=== PATIENT | male | born 1950 | race Caucasian/White ===

== ENCOUNTER 2019-06-13 11:56 | Inpatient (IN) | payer MEDICARE ==
[~2019-06-13] VITALS: Ht 172.7 cm; Wt 68.2 kg
--- NOTE | ~2019-06-13 | HEMODYNAMI ---
PATIENT:KELLY PINA MEDICAL RECORD: [id number] : 52 LOCATION[id number] ADMISSION DATE: 06/13/19 Generatedon:06/14/20198:24 Patient name: KELLY PINA Patient #: [id number] : 1950 Date of study: 06/14/2019 Page: Of Hemodynamic Procedure Report Patient Data Patient Demographics Procedure consent was obtained First Name: KELLY Gender: Male Last Name: SILVANA : 1950 Patient #: [id number] Age: 68 year(s) Race: SSN: [id number] Additional ID: [id number] Contact details Address: [place] [address] State: [place] City: [place] Zip code: [address] Past Medical History Allergies Allergen Reaction Date Comments Reported Other allergy 06/14/2019 [facility] Admission Admission Data Admission Date: 06/13/2019 Admission Time: 12:40 Room #: [facility] Insurance Payor: Medicare [facility] #: [id number] Current Diagnosis Diagnosis Description NSTEMI Lab Results Lab Result Date: 06/14/2019 Lab Result Time: 4:50 Biochemistry Name Units Result Min Max BUN mg/dl 25 --(----)-* 7 18 Creatinine mg/dl 1.4 --(----)*- 0.6 1.3 CBC Name Units Result Min Max Hematocrit % 44.3 --(*---)-- 42 54 Hemoglobin g/dl 16.4 --(--*-)-- 13.5 17.5 Procedure Procedure Types Cath Procedure Diagnostic Procedure LHC LHC w/Coronaries Procedure Description Procedure Date Procedure Date: 06/14/2019 Procedure Start Time: 8:12 Procedure End Time: 8:23 Procedure Staff Name Function Kris Mejia MD Performing Physician Alistair Singer RT Monitor Ty Mcarthur RN Nurse Kit Samuels RT Scrub Procedure Data Cath Procedure Fluoroscopy Diagnostic fluoroscopy Total fluoroscopy Time: 0.8 time: 0.8 min min Diagnostic fluoroscopy Total fluoroscopy dose: 212 dose: 212 mGy mGy Contrast Material Contrast Material Type Amount (ml) Isovue 300 45 Entry Location Entry Primary Successful Side Size Upsize Upsize Entry Closure Succes sful Closure Location (Fr) 1 (Fr) 2 (Fr) Remarks Device Remarks Femoral Right 5 Fr Exoseal artery Estimated blood loss: 5 ml Diagnostic catheters Device Type Used For End Catheter Placement MULTIPACK Pigtail 5 Fr Procedure catheter MULTIPACK JL 4.0 5Fr Procedure catheter MULTIPACK 3DRC 5Fr Procedure catheter Procedure Complications No complications Procedure Medications Medication Administration Route Dosage 0.9% NaCl I.V. 100 ml/hr Oxygen NC 3 l/min Heparin Flush Bag added to field 2 bags (1000units/500ml NS) Lidocaine 2% added to field 20 Versed I.V. 2 mg Fentanyl I.V. 100 mcg Versed I.V. 2 mg Fentanyl I.V. 100 mcg Hemodynamics Rest HGB: 16.4 (g/dl) Heart Rate: 86 (bpm) Snapshots Pre Cath Intra NCS Post Cath Vital Signs Time Heart Resp SPO2 etCO2 NIBP Rhythm Pain Sedation Rate (ipm) (%) (mmHg) (mmHg) Status Level (bpm) 7:59:15 75 23 95 0 127/80(97) NSR 0 (11) 10(A) , No pain 8:03:25 80 22 92 0 117/78(95) NSR 0 (11) 10(A) , No pain 8:07:31 82 32 91 0 116/75(90) NSR 0 (11) 10(A) , No pain 8:11:32 81 19 92 0 109/76(93) NSR 0 (11) 10(A) , No pain 8:15:36 79 16 92 0 104/78(92) NSR 0 (11) 10(A) , No pain 8:19:36 81 24 90 0 120/73(97) NSR 0 (11) 10(A) , No pain Medications Time Medication Route Dose Verified Delivered Reason Notes Effec tiveness by by 7:57:34 0.9% NaCl I.V. 100 Ty Ty Per ml/hr Blue newman RN RN 7:57:46 Oxygen NC 3 Ty Ty for low 02 l/min Lorigan Lorigan sats RN RN 7:57:58 Heparin Flush added 2 Ty Ty used for Bag to bags Lorigan Lorigan procedure (1000units/500ml field RN RN NS) 7:58:12 Lidocaine 2% added 20ml Yt Ty for local to vial Lorigan Lorigan anesthetic field RN RN 8:10:46 Versed I.V. 2 mg Ty Ty for Lorigan Lorigan sedation RN RN 8:10:55 Fentanyl I.V. 100 Ty Ty for mcg Lorigan Lorigan sedation RN RN 8:12:06 Versed I.V. 2 mg Ty Ty for Lorigan Lorigan sedation RN RN 8:12:13 Fentanyl I.V. 100 Ty Ty for mcg Lorigan Lorigan sedation RN rack pusher Log Time Note 7:30:11 Insurance Payor : Medicare 7:30:26 Ty Mcarthur RN sent for patient. Start room use. 7:30:39 Current Diagnosis : NSTEMI 7:39:27 Time tracking: Regular hours (M-F 7:00 - 5:00) 7:39:32 Plan of Care:Hemodynamics will remain stable., Cardiac rhythm will remain stable., Comfort level will be maintained., Respiratory function will remain adequate., Patient/ family verbilizes understanding of procedure., Procedure tolerated without complication., Recovers from procedure without complications.. 7:47:06 Lab Result : Hemoglobin 16.4 g/dl 7:47:06 Lab Result : Hematocrit 44.3 % 7:47:06 Lab Result : BUN 25 mg/dl 7:47:06 Lab Result : Creatinine 1.4 mg/dl 7:47:12 Diagnostic Cath Status : Elective 7:47:25 Patient received from Med II to CCL 1 Alert and oriented. Tansferred to table in Supine position. 7:47:27 Signed procedure consent form obtained from patient. 7:47:28 Warm blankets applied, and giuseppe hugger turned on for patient comfort. 7:47:28 Correct patient and procedure confirmed by team. 7:47:29 ECG and BP/O2 sat monitors applied to patient. 7:47:37 H&P Date Dictated: 06/13/2019 Within 30 days and on chart.. 7:47:39 Pre-procedure instructions explained to patient. 7:47:39 Pre-op teaching completed and patient verbalized understanding. 7:47:41 Family in patients room. 7:47:42 Patient NPO since Midnight. 7:47:51 Patient allergic to Other allergypcn 7:49:02 ACC Patient presents with Non-STEMI CCS Anginal Class 4--Inability to carry out any physical activity w/o angina. Angina may occur at rest. 7:49:05 ACCPatient has been prescribed/administered the following anti-anginal medication within the last 2 weeks: Beta Lisa 7:49:08 Procedure Status Urgent Heart Cath (IP). 7:51:37 Is the patient allergic to Iodine/contrast media? No. 7:51:37 Is patient on blood thinner?Yes 7:51:40 ACC The patient was administered the following blood thiners within the last 24 hours: ACCAspirin, ACCPlavix 7:51:42 Patient diabetic? No. 7:51:46 Previous problem with sedation/anesthesia? No ? 7:51:48 Snore? No 7:51:49 Sleep apnea? No 7:51:51 Deviated septum? No 7:51:52 Opens mouth fully? Yes 7:51:52 Sticks out tongue? Yes 7:51:58 Airway obstruction? Yes COPD/ ASTHMA 7:52:02 Dentures? Yes IN TIGHT 7:52:05 Pre procedure: right dorsailis pedis pulse 2+ Normal; easily identifiable; not easily obliterated 7:52:10 Patient pain scale 0/10 ?. 7:52:13 IV patent on arrival in right hand with 0.9% NaCl at KVO. 7:52:15 Lab results completed and on chart. 7:52:18 Right groin area was prepped with chlora-prep and draped in sterile fashion 7:52:19 Alarms reviewed by R. N. 7:52:19 Sharps counted by scrub and verified by R.N. 7:52:22 Use device set Femoral Dx 7:52:23 ACIST Syringe (98703) opened to sterile field. 7:52:23 Bag Decanter (2002) opened to sterile field. 7:52:24 Medline Cath Pack ([id number]) opened to sterile field. 7:52:25 ACIST Hand Control (45683) opened to sterile field. 7:52:26 ACIST Manifold (40755) opened to sterile field. 7:52:27 Tegaderm 4 x 4 (1626W) opened to sterile field. 7:52:29 EMERALD Guide Wire (107-279) opened to sterile field. 7:52:29 SHEATH 5FR Merrimac (VWD709) opened to sterile field. 7:52:31 DIAGNOSTIC Multipack 5Fr catheter set (AV1811) opened to sterile field. 7:56:14 Baseline sample Acquired. 7:56:17 Rhythm: sinus rhythm 7:56:19 Full Disclosure recording started 7:57:34 0.9% NaCl 100 ml/hr I.V. was administered by Ty Mcarthur RN; Per physician; 7:57:46 Oxygen 3 l/min NC was administered by Ty Mcarthur RN; for low 02 sats; 7:57:58 Heparin Flush Bag (1000units/500ml NS) 2 bags added to field was administered by Ty Mcarthur RN; used for procedure; 7:58:12 Lidocaine 2% 20ml vial added to field was administered by Ty Mcarthur RN; for local anesthetic; 7:58:17 Vital chart was started 8:02:06 Zero performed for pressure channel P1 8:10:09 Physician arrived 8:10:09 --------ALL STOP TIME OUT------ 8:10:09 Final Timeout: patient, procedure, and site verified with staff and physician. All members of the team are in agreement. 8:10:11 Right groin site verified by team. 8:10:14 Fire Safety Assessment: A--An alcohol-based skin anteseptic being used preoperatively., C--Open oxygen or nitrous oxide is being used., D--An ESU, laser, or fiber-optic light is being used. 8:10:18 Physical assessment completed. ASA score P 2 - A patient with mild systemic disease as per Kris Mejia MD. 8:10:26 3a) 45-59 Moderately reduced kidney function. 8:10:33 Maximum allowable contrast dose (3.7 X eGFR X 0.75)150 ml. 8:10:37 Sedation plan: IV Moderate Sedation Medication:Versed, Fentanyl 8:10:46 Versed 2 mg I.V. was administered by Ty Mcarthur RN; for sedation; 8:10:55 Fentanyl 100 mcg I.V. was administered by Ty Mcarthur RN; for sedation; 8:12:01 Procedure started. 8:12:06 Versed 2 mg I.V. was administered by Ty Mcarthur RN; for sedation; 8:12:07 Local anesthetic to right femoral artery with Lidocaine 2% by Kris Mejia MD.INITIAL ACCESS ONLY 8:12:13 Fentanyl 100 mcg I.V. was administered by Ty Mcarthur RN; for sedation; 8:12:14 A 5 Fr sheath was inserted into the Right Femoral artery 8:13:10 A MULTIPACK Pigtail 5 Fr catheter was advanced over the wire and used for Procedure. 8:13:12 LV gram done using SOLORIO 8:13:14 Injector settings: Ml/sec: 10, Volume: 20, 8:13:16 LV hemodynamics recorded. 8:13:20 EF : 40 % 8:13:23 Catheter exchanged over wire. 8:13:35 A MULTIPACK JL 4.0 5Fr catheter was advanced over the wire and used for Procedure. 8:14:01 LCA angiography performed. 8:15:14 Catheter exchanged over wire. 8:15:21 A MULTIPACK 3DRC 5Fr catheter was advanced over the wire and used for Procedure. 8:15:26 RCA angiography performed. 8:16:41 Catheter removed. 8:16:42 EXOSEAL 5Fr (EX500) opened to sterile field. 8:16:53 Sheath removed intact; hemostasis achieved with Exoseal to the Right Femoral artery. 8:16:54 Procedure ended.(Physican Out) 8:19:11 Fluoroscopy time 00.80 minutes. 8:19:14 Fluoroscopy dose: 212 mGy 8:19:14 Flurop Dose total: 212 8:19:19 Dose Area Product 9915 mGy/cm. 8:21:53 Contrast amount:Isovue 300 45ml. 8:21:58 Maximum allowable dose exceeded? No. 8:21:59 Sharps counted by scrub and verified by R.N. 8:22:00 Insertion/operative site no bleeding no hematoma. 8:22:03 Post-op/insertion site Right Femoral artery dressed using a 4 x 4 and Tegaderm. 8:22:06 Post right femoral artery:stable, soft, clean and dry 8:22:08 Post Procedure Pulses reassessed and unchanged 8:22:11 Post-procedure physical assessment completed. ASA score P 2 - A patient with mild systemic disease as per Kris Mejia MD. 8:22:14 Post procedure rhythm: unchanged. 8:22:17 Estimated blood loss: 5 ml 8:22:18 Post procedure instruction explained to patient.Patient verbalizes understanding. 8:22:19 Patient needs reinforcement of post procedure teaching. 8:22:42 Procedure and supply charges have been captured, reviewed, submitted and are correct. 8:22:45 Procedure Complication : No complications 8:22:47 Vital chart was stopped 8:22:49 See physician's report for complete and final results. 8:23:05 Report given to PCU. 8:23:08 Patient transfered to PCU with Stretcher. 8:23:10 Procedure ended. 8:23:10 Full Disclosure recording stopped 8:23:14 End room use (Document Last) 8:23:54 ACCDominant side:Co-Dominant Device Usage Item Name Manufacture Quantity Catalog Hospital Part Current Minimal L ot# / Number Charge Number Stock Stock Serial# Code ACIST Acist 1 88750 [id number] 680076 225800 20 Syringe Medical (26656) Systems Inc Bag Microtek 1 2001S 521674 69565 502369 5 Decanter Medical Inc. () Medline Medline 1 [id number] 663442 69397 307208 5 Cath Pack ([id number]) ACIST Hand Acist 1 61316 870317 254169 114212 5 Control Medical (57622) Systems Inc ACIST Acist 1 31890 415552 788796 566085 5 Manifold Medical (45517) Systems Inc Tegaderm 4 3M 1 1626W 252534 026397 874184 5 x 4 (1626W) EMERALD Cardinal 1 502-455 950088 889279 351464 5 Guide Wire Health (502-455) SHEATH 5FR Terumo 1 [id number] 664759 194285 957965 5 [place]imac (VCS677) DIAGNOSTIC Cardinal 1 [id number] 891814 70070 095276 30 Multipack Health 5Fr catheter set (UF7692) MULTIPACK Cardinal 1 139698 5 Pigtail 5 Health Fr catheter MULTIPACK Cardinal 1 827238 5 JL 4.0 5Fr Health catheter MULTIPACK Cardinal 1 987590 5 3DRC 5Fr Health catheter EXOSEAL 5Fr Cardinal 1 EX500 219584 487995 460672 10 (EX500) Health Signature Audit [place] Stage Time Signature Unsigned Intra-Procedure 06/14/2019 Kit Samuels 8:24:26 AM RT(R) Signatures Performing Physician : Signature : Kris Mejia MD Date : Time : Monitor : Alistair Singer RT Signature : Date : Time : Nurse : Ty Mcarthur Signature : RN Date : Time : [place] [address] [place] [address]
[2019-06-13] MEDS ORDERED: PROPECIA1 MG PO (12:02)
[2019-06-13] MEDS ORDERED: ASPIRIN81 MG PO (12:03)
[2019-06-13 12:17] VITALS: BP 149/85
--- NOTE | 2019-06-13 12:25 | NUR ---
PT NOTED TO BE ON 83% ON RA.
--- NOTE | 2019-06-13 12:42 | NUR ---
IV STARTED PRIOR TO ARRIVAL AT THIS ED
--- NOTE | 2019-06-13 13:24 | MORECARE ---
CASE MANAGEMENT DISCHARGE SUMMARY PATIENT: KELLY PINA UNIT: [id number] ADM DATE: 06/13/19 AGE: 68 : 51 SEX: M ROOM/BED: D.2127 AUTHOR: PANKAJ LU PHYSICIAN: REFERRING PHYSICIAN: PATSY MORIN MD DATE OF SERVICE: 06/13/19 Discharge Plan Patient Name: KELLY PINA [facility] : 1950 Planned Disposition: Home Anticipated Discharge Date: 06/15/19 Discharge Date: Expected LOS: 2 Initial Reviewer: [email or web address] Initial Review Date: 06/13/2019 Generated: 06/13/19 2:24 pm Patient Name: KELLY PINA Page 31475 at 1324 All edits/amendments must be made on the electronic document DICTATION DATE: 06/13/19 1324 PUTTY WORKER: DANII 06/13/19 1324 RPT#: [id number] DC DATE: STATUS: ADM IN [facility] [address] [place] [address] END OF REPORT
[2019-06-13 13:35] VITALS: BP 109/83
--- NOTE | 2019-06-13 13:39 | MORECARE ---
CASE MANAGEMENT DISCHARGE SUMMARY PATIENT: KELLY ARAGON UNIT: [id number] ADM DATE: 06/13/19 AGE: 68 : 51 SEX: M ROOM/BED: D.2127 AUTHOR: PANKAJ LU PHYSICIAN: REFERRING PHYSICIAN: PATSY MORIN MD DATE OF SERVICE: 06/13/19 Discharge Plan Patient Name: KELLY ARAGON Facility: [facility]:[place] : 1950 Planned Disposition: Home Anticipated Discharge Date: 06/15/19 Discharge Date: Expected LOS: 2 Initial Reviewer: [email or web address] Initial Review Date: 06/13/2019 Generated: 06/13/19 2:38 pm DCPIA - Discharge Planning Initial Assessment Updated by [id number]: Maria A Kee on 06/13/19 1:35 pm * Is the patient Alert and Oriented? Yes * How many steps to enter\exit or inside your home? * PCP Dr. Albin Tate * Pharmacy [facility] * Preadmission Environment Home with Family * ADLs Independent * Equipment Nebulizer * List name and contact numbers for known caregivers / representatives who currently or will assist patient after discharge: aMyra Aragon - spouse - [phone] Carri - sister in law - transportation provider - can't remember number. has cell phone w/ Carri's number. * Verbal permission to speak to the caregivers and representatives has been obtained from the patient. Yes * Community resources currently utilized None * Additional services required to return to the preadmission environment? Yes * Can the patient safely return to the preadmission environment? Yes * Has this patient been hospitalized within the prior 30 days at any hospital? No Last DP export: 06/13/19 12:24 pm Patient Name: KELLY ARAGON Page 68979 at 1339 All edits/amendments must be made on the electronic document DICTATION DATE: 06/13/191337 BASKET ASSEMBLER: DANII 06/13/191337 RPT#: [id number] DC DATE: STATUS: ADM IN [facility] [address] [id number] END OF REPORT
--- NOTE | 2019-06-13 13:53 | MORECARE ---
CASE MANAGEMENT DISCHARGE SUMMARY PATIENT: KELLY ARAGON UNIT: [id number] ADM DATE: 06/13/19 AGE: 68 : 51 SEX: M ROOM/BED: D.2127 AUTHOR: ALY,DOC PHYSICIAN: REFERRING PHYSICIAN: PATSY MORIN MD DATE OF SERVICE: 06/13/19 Discharge Plan Patient Name: KELLY ARAGON Facility: [facility]:[place] : 1950 Planned Disposition: Home Anticipated Discharge Date: 06/15/19 Discharge Date: Expected LOS: 2 Initial Reviewer: [email or web address] Initial Review Date: 06/13/2019 Generated: 06/13/19 2:53 pm DCP- Discharge Planning Updated by [id number]: Maria A Kee on 06/13/19 12:[address] Patient Name: KELLY ARAGON Admission Status: ER Accout number: [id number] Admission Date: 06-13-2019 : 1950 Admission Diagnosis: Attending: TOBY MORIN Current LOS: 1 Anticipated DC Date: 06-15-2019 Planned Disposition: Home Primary Insurance: MEDICARE A & B DC PLAN: Return home with independently. ANTICIPATED DC NEEDS: Home O2 with portability. PHI signed for [employer] or [employer] equipment. Discharge Planning Comments: CM met with patient to complete initial dc planning assessment. CM educated patient on the CM role and verbal consent given by patient to complete assessment. The patient was very sob and hypoxic during assessment. He was changing his clothes and putting on a hospital gown and his O2 sat were 82-83% on 2.5 liters of oxygen. Once the patient sat back and caught his breath his O2 sat improved to 94% on the 2.5 liters. He denied having oxygen at home. He stated he has a rescue inhaler and a nebulizer but he hates using the nebulizer. CM verified patient's address, phone number, and emergency contact phone numbers. Patient lives at home with his . At discharge patient plans to return home and feels this is a safe discharge. CM discussed availability of home health, rehab services, and medical equipment. Patient denied known discharge needs at this time other the the possible need for O2. PHI form presented, explained, and signed by the patient with [facility] or [facility] being his choices. Patient reports his sister in law, Carri will transport him home at time of discharge. CM will continue to follow and will assist as needed with dc plans/needs. Mailing Address: [address] [place] [address] Physical Address: [address] [place], [place] [address], [place] [address] Corrosion Engineer: Maria A Kee RN, [facility] DCPIA - Discharge Planning Initial Assessment Updated by [id number]: Maria A Kee on 06/13/19 1:35 pm * Is the patient Alert and Oriented? Yes * How many steps to enter\exit or inside your home? * PCP Dr. Albin Tate * Pharmacy [facility] * Preadmission Environment Home with Family * ADLs Independent * Equipment Nebulizer * List name and contact numbers for known caregivers / representatives who currently or will assist patient after discharge: Mayra Aragon - spouse - [phone] Carri - sister in law - transportation provider - can't remember number. has cell phone w/ Carri's number. * Verbal permission to speak to the caregivers and representatives has been obtained from the patient. Yes * Community resources currently utilized None * Additional services required to return to the preadmission environment? Yes * Can the patient safely return to the preadmission environment? Yes * Has this patient been hospitalized within the prior 30 days at any hospital? No Last DP export: 06/13/19 12:39 pm Patient Name: KELLY ARAGON Page 19037 at 1353 All edits/amendments must be made on the electronic document DICTATION DATE: 06/13/191352 ENCODING CLERK: DANII 06/13/19 135 RPT#: [id number] DC DATE: STATUS: ADM IN [facility] [address] [place] [address] END OF REPORT
[2019-06-13] MEDS ORDERED: ALBUTEROL SULF8.5 GM INH (14:27)
[2019-06-13] MEDS ORDERED: PROSCAR5 MG (14:28)
[2019-06-13] MEDS ORDERED: CARDURA2 MG PO (14:28)
[2019-06-13 15:14] VITALS: BP 145/80; Ht 172.7 cm; Wt 68.2 kg
--- NOTE | 2019-06-13 15:21 | NUR ---
ASSESSMENT COMPLETE PT AAOX4 RESP UNLABORED SKIN W/D COLOR WNL DENIES ANY PAIN AT THIS TIME LT HAND SALINE LOCK INTACT SITE SITE FREE OF REDNESS OR EDEMA NAD NOTED WILL CONTINUE TO MONITOR
[2019-06-13 17:19] LABS: APTT 32.4 SECONDS (22.8-39.4); INR 1.12 (0.85-1.17); PROTIME 13.8 SECONDS (11.6-15.0)
[2019-06-13 17:31] LABS: D-DIMER-QUANTITATIVE 11.82 ug/mLFEU (0.20-0.54)
[2019-06-13 17:32] LABS: ALBUMIN 3.3 g/dL (3.4-5.0); ALKALINE PHOSPHATASE 97 U/L (46-116); ALT (SGPT) 13 U/L (10-68); BILIRUBIN - TOTAL 1.31 mg/dL (0.2-1.3); CALC OSMOLALITY 277 mosm/kg (275-300); CALCIUM 9.1 mg/dL (8.5-10.1); CARBON DIOXIDE 22.7 mmol/L (21.0-32.0); CHLORIDE - SERUM 101 mmol/L (98-107); CREATININE - SERUM 1.4 mg/dL (0.6-1.3); GLUCOSE 131 mg/dL (74-106); POTASSIUM - SERUM 3.9 mmol/L (3.5-5.1); PROTEIN - SERUM 7.3 g/dL (6.4-8.2); SODIUM 137 mmol/L (136-145); UREA NITROGEN 18 mg/dL (7-18); eGFR NON AFRICAN AMERICAN 54 mL/min (90-120)
[2019-06-13 17:40] LABS: CKMB 5.7 U/L (0.0-3.6); CREATINE KINASE 93 UL (21-232); PRO BNP 10791 pg/mL (0-125)
[2019-06-13 17:44] LABS: BASOPHILS 0.2 % (0-2); EOSINOPHILS 0.2 % (0-7); HEMOGLOBIN 16.1 g/dL (13.5-17.5); IMMATURE GRANULOCYTES 0.3 % (0-5); LYMPHOCYTES 3.9 % (15-50); MCH 37.8 pg (26.0-34.0); MCHC 36.6 g/dL (31.0-37.0); MCV 103.3 fL (80.0-100.0); MEAN PLATELET VOLUME 12.5 fL (7.4-10.4); MONOCYTES 2.8 % (2-11); NEUTROPHILS 92.6 % (40-80); PLATELET COUNT 103 10x3/uL (130-400); RBC 4.26 10x6/uL (4.20-6.10); WBC 11.8 10x3/uL (4.8-10.8)
[2019-06-13 17:46] LABS: TROPONIN-I 1.352 ng/mL (0.000-0.060)
--- NOTE | 2019-06-13 19:39 | NUR ---
PATIENT REQUESTS PAIN MEDICATION FOR LEFT SHOULDER THAT WAS RECENTLY REPLACED THAT HAS BEEN CAUSING PAIN THROUGH BACK AND UP NECK. DR. LACEY.
[2019-06-13 20:00] VITALS: BP 124/78
[2019-06-13 23:04] LABS: CKMB 3.6 U/L (0.0-3.6); CREATINE KINASE 78 UL (21-232)
[2019-06-13 23:07] LABS: TROPONIN-I 0.974 ng/mL (0.000-0.060)
[2019-06-14] VITALS: BP 127/79
--- NOTE | 2019-06-14 01:20 | NUR ---
PATIENT LAYING IN BED, EYES CLOSED, CHEST RISING AND FALLING. NO DISTRESS NOTED.
[2019-06-14 04:00] VITALS: BP 117/78
[2019-06-14 06:15] LABS: BASOPHILS 0.1 % (0-2); EOSINOPHILS 0.3 % (0-7); HEMATOCRIT 44.3 % (42.0-54.0); HEMOGLOBIN 16.4 g/dL (13.5-17.5); IMMATURE GRANULOCYTES 0.3 % (0-5); LYMPHOCYTES 4.5 % (15-50); MCH 37.8 pg (26.0-34.0); MCV 102.1 fL (80.0-100.0); MEAN PLATELET VOLUME 12.9 fL (7.4-10.4); MONOCYTES 8.8 % (2-11); RBC 4.34 10x6/uL (4.20-6.10); WBC 12.6 10x3/uL (4.8-10.8)
[2019-06-14 06:21] LABS: ALBUMIN 3.1 g/dL (3.4-5.0); ALKALINE PHOSPHATASE 88 U/L (46-116); ALT (SGPT) 13 U/L (10-68); BILIRUBIN - TOTAL 1.02 mg/dL (0.2-1.3); CALCIUM 8.9 mg/dL (8.5-10.1); CARBON DIOXIDE 21.2 mmol/L (21.0-32.0); CHLORIDE - SERUM 101 mmol/L (98-107); CKMB 3.2 U/L (0.0-3.6); CREATINE KINASE 88 UL (21-232); CREATININE - SERUM 1.4 mg/dL (0.6-1.3); GLUCOSE 149 mg/dL (74-106); PLATELET COUNT 139 10x3/uL (130-400); POTASSIUM - SERUM 4.4 mmol/L (3.5-5.1); PROTEIN - SERUM 7.1 g/dL (6.4-8.2); SODIUM 135 mmol/L (136-145); eGFR NON AFRICAN AMERICAN 54 mL/min (90-120)
[2019-06-14 06:32] LABS: CALC OSMOLALITY 276 mosm/kg (275-300); UREA NITROGEN 25 mg/dL (7-18)
--- NOTE | 2019-06-14 07:38 | NUR ---
PREOP'T FOR HEARTCATH AT THIS TIME.
--- NOTE | 2019-06-14 07:42 | NUR ---
PATIENT LEFT UNIT VIA BED WITH 2 ATTENDANTS FOR THE TRANSITION TEACHER AT THIS TIME. NO DISTRESS UPON LEAVING UNIT.
--- NOTE | 2019-06-14 07:59 | NUR ---
PATIENTS SPOUSE CALLED UNIT TO CHECK ON PATIENT AND INFORMED HER THAT HE IS IN THE SPRAY FOAM INSTALLER AT THIS TIME BUT WILL CALL HER WHEN HE RETURNS TO THE UNIT.
--- NOTE | 2019-06-14 08:32 | NUR ---
RECEIVED REPORT FROM TIP SCOURER, PATIENT HAD A CLEAN HEART CATH.
--- NOTE | 2019-06-14 08:33 | NUR ---
PATIENT RECEIVED BACK TO UNIT VIA BED AT THIS TIME.
--- NOTE | 2019-06-14 08:46 | NUR ---
RESTING IN BED WITH EYES OPEN. BP 98/70. IV FLUIDS INFUSING ORDERED. NO S/S HEMATOMA AT RIGHT GROIN. PERIPHERAL PULSES 2+. NO DISTRESS. PATIENT IS AWAKE BUT NOT MAKING SENSE. CALL LIGHT WITHIN REACH. TELEMETRY APPLIED. VS EVERY 15 MINUTES.
--- NOTE | 2019-06-14 09:04 | HP ---
PATIENT: KELLY PINA MEDICAL RECORD: [id number] ACCOUNT: [id number] LOCATION:[address] : 52 ADMISSION DATE: 06/13/19 PCP: LOUISE CATHERINE MD HISTORY AND PHYSICAL EXAMINATION DIAGNOSES: 1. Non-Q-wave myocardial infarction. 2. Coronary artery disease. 3. Previous percutaneous transluminal coronary angioplasty stent. 4. Chronic obstructive pulmonary disease. 5. Asthma. 6. Hypertension. 7. Hyperlipidemia. HISTORY OF PRESENT ILLNESS: Mr. Pina presents with a few days of increasing episodes of chest pain, chest discomfort compatible with angina, 2 weeks of increasing episodes of shortness of breath. He is so short of breath that he cannot walk across the room without being short of breath at this point. He does have a significantly abnormal ECG suggestive of ongoing ischemia with T-wave inversions. He continues to have episodes of chest pain, chest pressure, heaviness. He is having class IV pain at rest. He does have a history of coronary artery disease, previous stenting approximately 15 years ago. PHYSICAL EXAMINATION: GENERAL APPEARANCE: Well-nourished, well-developed, appears stated age. Level of distress, comfortable. PSYCHIATRIC: Mental status, alert, normal affect. Orientation, oriented to time, place and person. EYES: Lids and conjunctiva, noninjected. No discharge, no pallor. ENT: Lips, teeth, gums, normal dentition. Oropharynx, no cyanosis, no pallor. NECK: Carotid arteries, bilateral normal upstroke, no bruits, no thrills. JUGULAR VEINS: No jugular venous pressure or distention. CERVICAL LYMPH NODES: Nontender, nonenlarged. THYROID: Not enlarged. Nontender. No nodules. LUNGS: Respiratory effort, unlabored. CHEST: Normal curvature. No thoracic deformity. No chest wall tenderness. Percussion, resonant. Auscultation, clear. No wheezes, no rales, no rhonchi. CARDIOVASCULAR: Precordial exam, nondisplaced. No heaves or pericardial thrills. Rate and rhythm, regular. Heart sounds, normal S1, normal S2. No S3, no gallop, no rub. Systolic murmur, not heard. Diastolic murmur, not heard. EXTREMITIES: No cyanosis, no edema. Peripheral pulses, full and equal in all extremities, except as noted. No bruits appreciated. ABDOMEN: Soft, nondistended. Normal aorta. No bruit. Nontender. No masses. Liver, nontender, no hepatomegaly. Spleen, nontender, no splenomegaly. MUSCULOSKELETAL: No joint tenderness. No joint swelling. No erythema. NEUROLOGICAL: Normal gait, normal strength, normal tone. SKIN: Warm and dry. OVERALL IMPRESSION: Shortness of breath way out of proportion to his COPD and lung disease, most likely secondary to his ischemic heart disease. We will get an echocardiogram today, load him with Plavix, proceed with coronary angiography in the a.m. TRANSINT:[id number] Voice Confirmation ID: [id number] DOCUMENT ID: [id number] HISTORY AND PHYSICAL [id number] KELLY PINA JEFFREY MD at 0904 CC: [id number] DICTATION DATE: 06/13/19 1241 SUPERVISOR SHEARING: 06/13/19 1309 ADM IN [facility] [address] [place] [address]
--- NOTE | 2019-06-14 09:22 | NUR ---
PATIENT FOUND STANDING AT BEDSIDE, BP CUFF TORE OFF, NO GOWN. PATIENT CONFUSED, HAS BEEN CONFUSED SINCE RETURNING FROM CURTAIN WORKER AFTER RECEIVING VERSED AND FENTENYL. VS 99/70, NO HEMATOMA TO RIGHT GROIN. PATIENT HAD DISCONNECTED HIS IV. IV RECONNECTED AND FLUIDS INFUSING ORDERED. BED ALARM PATENT TO FULL SURFACE AREA. CALL LIGHT WITHIN REACH. NO DISTRESS AT THIS TIME. REORIENTED. PERIPHERAL PULSES PATENT.
--- NOTE | 2019-06-14 09:38 | NUR ---
CALLED AND SPOKE TO PATIENTS . INFORMED HER THAT PATIENT WILL BE DISCHARGED TODAY. PATIENT STATES SHE HAS NO WAY TO COME AND GET HIM BECAUSE SHE THOUGHT HE WOULD BE HERE UNTIL TOMORROW. ADONIS STATES SHE IS IN A WHEELCHAIR AND HAS TO MAKE ARRANGEMENTS FOR HER SISTER TO TRANSPORT THEM. THIS DRY FINISHER EXPLAINED THAT I WOULD MAKE CASE MANAGMENT AWARE OF THIS BUT WE DO NOT TRANSPORT BACK TO YOUR RESIDENCE AND IT IS THE FAMILIES RESPONSIBILITY TO COME AND PICK THE PATIENT UP. THE PATIENTS SPOUSE ADONIS STATES THAT SHE WILL KRISTY THE HOSPITAL IF WE PUT HIM OUT ON THE SIDEWALK. EXPLAINED TO PATIENTS SPOUSE ADONIS THAT THIS DRY FINISHER WOULD RELAY THIS MESSAGE TO CASE MANAGEMENT AND WE ARE NOT PUTTING HIM OUT ON THE STREET, BUT IT IS THE FAMILIES RESPONSIBILITY AT THIS TIME TO COME AND PICK THE PATIENT UP. INFORMED SUSY WITH CASE MANAGEMENT OF SITUATION AND TOLD STATED HE WILL CALL THE PATIENTS AFTER HE RETURNS FROM HIS MORNING MEETING.
--- NOTE | 2019-06-14 09:47 | NUR ---
SCDS REFUSED AT THIS TIME.
--- NOTE | 2019-06-14 09:53 | EC ---
PATIENT:KELLY PINA DATE OF SERVICE: 06/13/19 SEX: M MEDICAL RECORD: [id number] DATE OF : [birth year] LOCATION:D.M2 D.212 AGE OF PATIENT: 68 ADMISSION DATE: 06/13/19 REFERRING PHYSICIAN: INTERPRETING PHYSICIAN: PATSY MEJIA MD ECHOCARDIOGRAM REPORT ECHO CHARGES 4 ECHO COMPLETE Date: 06/13/19 CLINICAL DIAGNOSIS: AK ECHOCARDIOGRAPHIC MEASUREMENTS (adult normal given) AC root (d.<3.7cm) 2.2 cm LV Septum d (<1.2 cm> 0.9 cm Valve Excursion 1.2 cm LV Septum (systole) 1.0 cm Left Atria (s.<4.0cm> 2.7 cm LVPW d(<1.2cm) 1.2 cm RV (d.<2.3cm) 3.1 cm LVPW (sytole) 1.3 cm LV diastole(<5.6CM) 4.0 cm MV E-F(>70mm/sec) cm LV systole 2.4 cm LVOT Diameter 1.9 cm MV exc.(>10mm) cm Est.ejection fraction (50-75%) % DOPPLER: LVIT cm/sec A 68 cm/sec E 56 cm/sec LA cm/sec RVSP 15.2 mmHg LVOT 69 cm/sec AOP1/2T m/s Asc. Ao 106 cm/sec RVOT cm/sec RA cm/sec PA cm/sec AV Gradient Peak 4.5 mmHg AV Mean 2.7 mmHg AV Area 1.8 cm MV Gradient Peak 2.6 mmHg MV Mean 1.2 mmHg MV Area cm COMMENTS: Talent Development Manager: Joanie HARLEY Tissue Recovery Technician: Swati Mejia TAPE# PACS Pericardial Effusion N DATE OF SERVICE: 06/13/2019 ECHOCARDIOGRAM FINDINGS: 1. Left ventricular chamber size is within normal limits. Left ventricular systolic function is mildly reduced, overall ejection fraction 40% to 45%. 2. Left atrium, right atrium, and right ventricle chamber sizes are within normal limits. 3. Valvular structures have normal structure and motion. ECHOCARDIOGRAM REPORT [id number] KELLY PINA 4. Doppler interrogation reveals mild tricuspid regurgitation, no other valvular insufficiency or stenosis. Pulmonary systolic pressure is normal estimated at 15 mmHg. 5. No evidence of pericardial effusion or left ventricular thrombus. TRANSINT:[id number] Voice Confirmation ID: [id number] DOCUMENT ID: [id number] PATSY MEJIA MD at 0953 CC: [id number] DICTATION DATE: 06/13/191707 PARIMUTUEL TICKET CASHIER: 06/13/19 1854 ADM IN [place] [id number] [place] [id number]
--- NOTE | 2019-06-14 09:53 | OP ---
PATIENT NAME: KELLY PINA MEDICAL RECORD: [id number] :52 LOCATION:D.M2 D.2127 ADMISSION DATE:06/13/19 SURGEON: PATSY MORIN MD DATE OF OPERATION: 06/14/2019 DATE OF SERVICE: 06/14/2019 PROCEDURES: 1. Left heart catheterization. 2. Selective coronary angiography. 3. Left ventriculogram. INDICATION: Non-Q-wave myocardial infarction, COPD, shortness of breath, angina. PROCEDURE IN DETAIL: After informed consent was obtained and after a detailed description of the risks, benefits as well as alternative therapies, the patient elected to proceed with angiogram and heart catheterization. The right femoral area was prepped and draped in normal sterile fashion. The right femoral artery was cannulated via modified Seldinger technique with placement of 5-Amharic sheath. All catheters exchanged through this sheath. FINDINGS: Left ventriculogram was performed in standard 30-degree SOLORIO view, reveals mild global hypokinesis, ejection fraction in the 40% range. SELECTIVE CORONARY ANGIOGRAPHY: 1. Left main is with no significant angiographic disease. 2. Left anterior descending has moderate irregularities, but no flow-limiting stenosis. 3. The left circumflex has previously placed stent with wide patency. No significant restenosis. No disease elsewise throughout the circumflex or its branches. 4. Right coronary has moderate irregularities, but no flow-limiting stenosis. OVERALL IMPRESSION: Wide patency of the previously placed stent in the circumflex, no disease elsewise. Most likely his symptomatology is secondary to his chronic obstructive pulmonary disease exacerbation and not hemodynamically significant coronary artery disease. TRANSINT:[id number] Voice Confirmation ID: [id number] DOCUMENT ID: [id number] PATSY MORIN MD at 0953 CC: [id number] DICTATION DATE: 06/14/19 0822 REVENUE AGENT: 06/14/19 0848 [place] [address]
--- NOTE | 2019-06-14 10:01 | NUR ---
IN BED, CONTINUES TO TRY AND GET OOB. REORIENTED. BED ALARM REMAINS PATENT. UPSET ABOUT FAMILY NOT COMING UP HERE, UPSET AT FAMILY DYNAMICS BETWEEN HIS , HIM AND HIS WIFES SISTER. CALL LIGHT WITHIN REACH. NO DISTRESS.
--- NOTE | 2019-06-14 10:41 | NUR ---
LYING IN BED, NO DISTRESS BP 90/54. CASE MANAGEMENT AT BEDSIDE AND PATIENT STATES THAT HIS AND THE WIFES SISTER DID THIS SAME THING WHEN HE HAD HIS SURGERY ON HIS SHOULDER AND HE STATES THAT THE AND HIS WIFES SISTER JUST WANT THE HOSPITAL TO TRANSPORT HIM BACK HOME. PATIENT ALSO NOTIFIED OF HOME HEALTH THAT WANTS PATIENT TO RECEIVE.
[2019-06-14 10:45] VITALS: BP 107/73
[2019-06-14] MEDS ORDERED: BYSTOLIC10 MG PO (11:04)
--- NOTE | 2019-06-14 11:08 | MORECARE ---
CASE MANAGEMENT DISCHARGE SUMMARY PATIENT: KELLY ARAGON UNIT: [id number] ADM DATE: 06/13/19 AGE: 68 : 51 SEX: M ROOM/BED: D.2127 AUTHOR: ALY,DOC PHYSICIAN: REFERRING PHYSICIAN: PATSY MORIN MD DATE OF SERVICE: 06/14/19 Discharge Plan Patient Name: KELLY ARAGON Facility: [facility]:[place] : 1950 Planned Disposition: Home with Home Health Anticipated Discharge Date: 06/14/19 Discharge Date: Expected LOS: 1 Initial Reviewer: [email or web address] Initial Review Date: 06/13/2019 Generated: 06/14/19 12:07 pm DCP- Discharge Planning Updated by [email or web address]: Maria A Kee on 06/13/19 12:[address] Patient Name: KELLY ARAGON Admission Status: ER Accout number: [id number] Admission Date: 06-13-2019 : 1950 Admission Diagnosis: Attending: TOBY MORIN Current LOS: 1 Anticipated DC Date: 06-15-2019 Planned Disposition: Home Primary Insurance: MEDICARE A & B DC PLAN: Return home with independently. ANTICIPATED DC NEEDS: Home O2 with portability. PHI signed for [facility] or [facility] equipment. Discharge Planning Comments: CM met with patient to complete initial dc planning assessment. CM educated patient on the CM role and verbal consent given by patient to complete assessment. The patient was very sob and hypoxic during assessment. He was changing his clothes and putting on a hospital gown and his O2 sat were 82-83% on 2.5 liters of oxygen. Once the patient sat back and caught his breath his O2 sat improved to 94% on the 2.5 liters. He denied having oxygen at home. He stated he has a rescue inhaler and a nebulizer but he hates using the nebulizer. CM verified patient's address, phone number, and emergency contact phone numbers. Patient lives at home with his . At discharge patient plans to return home and feels this is a safe discharge. CM discussed availability of home health, rehab services, and medical equipment. Patient denied known discharge needs at this time other the the possible need for O2. PHI form presented, explained, and signed by the patient with [facility] or [facility] being his choices. Patient reports his sister in law, Carri will transport him home at time of discharge. CM will continue to follow and will assist as needed with dc plans/needs. Mailing Address: [address] [place] [address] Physical Address: [address] [place], [place] [address] [address] Manager User Interface: Maria A Kee RN, [facility] DCPIA - Discharge Planning Initial Assessment Updated by [email or web address]: Maria A Kee on 06/13/19 1:35 pm * Is the patient Alert and Oriented? Yes * How many steps to enter\exit or inside your home? * PCP Dr. Albin Tate * Pharmacy [facility] * Preadmission Environment Home with Family * ADLs Independent * Equipment Nebulizer * List name and contact numbers for known caregivers / representatives who currently or will assist patient after discharge: Mayra Aragon - spouse - [phone] Carri - sister in law - transportation provider - can't remember number. has cell phone w/ Carri's number. * Verbal permission to speak to the caregivers and representatives has been obtained from the patient. Yes * Community resources currently utilized None * Additional services required to return to the preadmission environment? Yes * Can the patient safely return to the preadmission environment? Yes * Has this patient been hospitalized within the prior 30 days at any hospital? No External Providers External Provider: [facility] Next Contact Date: 06/14/2019 Service Request Date: Service Type: Resolution: Reviewer: Comments: Last DP export: 06/13/19 12:53 pm Patient Name: KELLY ARAGON Page [phone] at 1108 All edits/amendments must be made on the electronic document DICTATION DATE: 06/14/191106 POST FORM REMOVER: DANII 06/14/191106 RPT#: [id number] DC DATE: STATUS: ADM IN [facility] [address] [place] [address] END OF REPORT
--- NOTE | 2019-06-14 11:22 | MORECARE ---
CASE MANAGEMENT DISCHARGE SUMMARY PATIENT: KELLY ARAGON UNIT: [id number] ADM DATE: 06/13/19 AGE: 68 : 51 SEX: M ROOM/BED: D.2127 AUTHOR: ALY,DOC PHYSICIAN: REFERRING PHYSICIAN: PATSY MORIN MD DATE OF SERVICE: 06/14/19 Discharge Plan Patient Name: KELLY ARAGON Facility: [facility]:[place] : 1950 Planned Disposition: Home with Home Health Anticipated Discharge Date: 06/14/19 Discharge Date: Expected LOS: 1 Initial Reviewer: [email or web address] Initial Review Date: 06/13/2019 Generated: 06/14/19 12:22 pm DCP- Discharge Planning Updated by [email or web address]: Maria A Kee on 06/13/19 12:[address] Patient Name: KELLY ARAGON Admission Status: ER Accout number: [id number] Admission Date: 06-13-2019 : 1950 Admission Diagnosis: Attending: TOBY MORIN Current LOS: 1 Anticipated DC Date: 06-15-2019 Planned Disposition: Home Primary Insurance: MEDICARE A & B DC PLAN: Return home with independently. ANTICIPATED DC NEEDS: Home O2 with portability. PHI signed for [facility] or [facility] equipment. Discharge Planning Comments: CM met with patient to complete initial dc planning assessment. CM educated patient on the CM role and verbal consent given by patient to complete assessment. The patient was very sob and hypoxic during assessment. He was changing his clothes and putting on a hospital gown and his O2 sat were 82-83% on 2.5 liters of oxygen. Once the patient sat back and caught his breath his O2 sat improved to 94% on the 2.5 liters. He denied having oxygen at home. He stated he has a rescue inhaler and a nebulizer but he hates using the nebulizer. CM verified patient's address, phone number, and emergency contact phone numbers. Patient lives at home with his . At discharge patient plans to return home and feels this is a safe discharge. CM discussed availability of home health, rehab services, and medical equipment. Patient denied known discharge needs at this time other the the possible need for O2. PHI form presented, explained, and signed by the patient with [facility] or [facility] being his choices. Patient reports his sister in law, Carri will transport him home at time of discharge. CM will continue to follow and will assist as needed with dc plans/needs. Mailing Address: [address] [place] [address] Physical Address: [address] [place], [place] [address] [address] Sound Assistant: Maria A Kee RN, [facility] DCPIA - Discharge Planning Initial Assessment Updated by [email or web address]: Maria A Kee on 06/13/19 1:35 pm * Is the patient Alert and Oriented? Yes * How many steps to enter\exit or inside your home? * PCP Dr. Albin Tate * Pharmacy [facility] * Preadmission Environment Home with Family * ADLs Independent * Equipment Nebulizer * List name and contact numbers for known caregivers / representatives who currently or will assist patient after discharge: Mayra Aragon - spouse - [phone] Carri - sister in law - transportation provider - can't remember number. has cell phone w/ Carri's number. * Verbal permission to speak to the caregivers and representatives has been obtained from the patient. Yes * Community resources currently utilized None * Additional services required to return to the preadmission environment? Yes * Can the patient safely return to the preadmission environment? Yes * Has this patient been hospitalized within the prior 30 days at any hospital? No Last DP export: 06/14/19 10:08 am Patient Name: KELLY ARAGON Page [phone] at 1122 All edits/amendments must be made on the electronic document DICTATION DATE: 06/14/191121 SCALEMAKER: DANII 06/14/191121 RPT#: [id number] DC DATE: STATUS: ADM IN [facility] [address] [place] [address] END OF REPORT
--- NOTE | 2019-06-14 11:31 | MORECARE ---
CASE MANAGEMENT DISCHARGE SUMMARY PATIENT: KELLY ARAGON UNIT: [id number] ADM DATE: 06/13/19 AGE: 68 : 51 SEX: M ROOM/BED: D.4045 AUTHOR: ALY,DOC PHYSICIAN: REFERRING PHYSICIAN: PATSY MORIN MD DATE OF SERVICE: 06/14/19 Discharge Plan Patient Name: KELLY ARAGON Facility: [facility]:[place] : 1950 Planned Disposition: Home with Home Health Anticipated Discharge Date: 06/14/19 Discharge Date: Expected LOS: 1 Initial Reviewer: [email or web address] Initial Review Date: 06/13/2019 Generated: 06/14/19 12:30 pm Comments DCP- Discharge Planning Updated by [email or web address]: Britton Ralph on 06/14/19 10:[address] Patient Name: KELLY ARAGON Encounter No: [id number] : 1950 Primary Insurance: MEDICARE A & B Anticipated DC Date: 06-14-2019 Planned Disposition: Home with Home Health External Planned Provider: [facility] [place]. DCP follow-up note: CM RECIEVED DISCHARGE ORDER, CM MET WITH PT IN ROOM TO DISCUSS DISCHARGE NEEDS AND PLANNING. CM DISCUSSED AVAILABILITY OF HOME HEALTH, REHAB SERVICES AND MEDICAL EQUIPMENT. PT WOULD LIKE HOME HEALTH, PT'S NURSE ENTERED ROOM AND HAS SPOKEN TO PT'S SPOUSE WHO INFORMED NURSE THAT THEY CANNOT DIRECTOR CAREER PT TODAY AND EXPECTED PT TO BE IN THE HOSPITAL FOR THREE DAYS. IMPORTANT MESSAGE FROM MEDICARE PROVIDED AND EXPLAINED. PT HAS HAD HOME HEALTH IN THE PAST BUT DOES NOT KNOW THE NAME OF THE COMPANY, THEY ARE [place]. CONSENT SIGNED FOR HOME HEALTH. CONSENT SIGNED FOR [facility] IF PT NEEDS OXYGEN FOR DISCHARGE HOME. PHYSICAL ADDRESS FOR DISCHARGE IS [address] [place] [address], [place], [place]. CM RECEIVED CALL FROM ARLET KEE, NURSE FOR DR. LOUISE CATHERINE, UPDATE PROVIDED. ARLET INFORMED CM THAT THE DOCTOR WILL SIGN FOR HOME HEALTH AND PT HAS FOLLOW UP APPOINTMENT WITH DR. CATHERINE ON 07-22-19. PT USES [facility]. CM SPOKE TO PT'S SPOUSE VIA PHONE, SHE WILL DIRECTOR CAREER PT IN ABOUT 3 HOURS. CM CALLED [facility], , SPOKE TO BELKIS AND PROVIDED HOME HEALTH REFERRAL INFORMATION. CM FAXED HOME HEALTH REFERRAL AND DISCHARGE INFORMATION TO [facility] AT [phone]. PT NOTIFIED. MANAGER GENERAL NURSE NOTIFIED. Britton Ralph. CASE MANAGEMENT DCP- Discharge Planning Updated by [email or web address]: Maria Adontae Kee on 06/13/19 12:[address] Patient Name: KELLY ARAGON Admission Status: ER Accout number: [id number] Admission Date: 06-13-2019 : 1950 Admission Diagnosis: Attending: TOBY MORIN Current LOS: 1 Anticipated DC Date: 06-15-2019 Planned Disposition: Home Primary Insurance: MEDICARE A & B DC PLAN: Return home with independently. ANTICIPATED DC NEEDS: Home O2 with portability. HPI signed for [facility] or [facility] equipment. Discharge Planning Comments: CM met with patient to complete initial dc planning assessment. CM educated patient on the CM role and verbal consent given by patient to complete assessment. The patient was very sob and hypoxic during assessment. He was changing his clothes and putting on a hospital gown and his O2 sat were 82-83% on 2.5 liters of oxygen. Once the patient sat back and caught his breath his O2 sat improved to 94% on the 2.5 liters. He denied having oxygen at home. He stated he has a rescue inhaler and a nebulizer but he hates using the nebulizer. CM verified patient's address, phone number, and emergency contact phone numbers. Patient lives at home with his . At discharge patient plans to return home and feels this is a safe discharge. CM discussed availability of home health, rehab services, and medical equipment. Patient denied known discharge needs at this time other the the possible need for O2. PHI form presented, explained, and signed by the patient with [facility] or [facility] being his choices. Patient reports his sister in law, aCrri will transport him home at time of discharge. CM will continue to follow and will assist as needed with dc plans/needs. Mailing Address: [place] [address] ~ [place] [address] Physical Address: [address] [place] [address] ~[place] [address] Drinking Water Technician: Maria A Kee RN, [facility] DCPIA - Discharge Planning Initial Assessment Updated by [email or web address]: Maria A Kee on 06/13/19 1:35 pm * Is the patient Alert and Oriented? Yes * How many steps to enter\exit or inside your home? * PCP Dr. Louise Catherine * Pharmacy [facility] * Preadmission Environment Home with Family * ADLs Independent * Equipment Nebulizer * List name and contact numbers for known caregivers / representatives who currently or will assist patient after discharge: Mayra Aragon - spouse - [phone] Carri - sister in law - transportation provider - can't remember number. has cell phone w/ Carri's number. * Verbal permission to speak to the caregivers and representatives has been obtained from the patient. Yes * Community resources currently utilized None * Additional services required to return to the preadmission environment? Yes * Can the patient safely return to the preadmission environment? Yes * Has this patient been hospitalized within the prior 30 days at any hospital? No Coverage Notice Reviewer: [email or web address] Ralph Notice Issued Date-Time: 06/14/2019 9:35 Notice Type: IM Discharge Notice Notice Delivered To: Patient Relationship to Patient: General Utility Maintenance Repairer Name: Delivery Method: HAND - Hand Delivered Bobbi Days: Prior Verbal Notification: Recipient Understood Notice: Yes Recipient Signature: Yes Med Rec Note Co-signed by Attending: Coverage Notice Comment: Reviewer: LEXI Ralph Notice Issued Date-Time: 06/14/2019 9:35 Notice Type: Patient Choice Letter Notice Delivered To: Patient Relationship to Patient: General Utility Maintenance Repairer Name: Delivery Method: HAND - Hand Delivered Bobbi Days: Prior Verbal Notification: Recipient Understood Notice: Yes Recipient Signature: Yes Med Rec Note Co-signed by Attending: Coverage Notice Comment: IESHA FOR DME PROVIDER IN [facility] Last DP export: 06/14/19 10:22 am Patient Name: KELLY ARAGON Page 45553 at 1131 All edits/amendments must be made on the electronic document DICTATION DATE: 06/14/191129 SPORTS EQUIPMENT SUPERVISOR: DANII 06/14/19 1130 RPT#: [id number] DC DATE: STATUS: ADM IN [facility] [address] [place] [address] END OF REPORT
[2019-06-14 11:49] VITALS: BP 96/68
--- NOTE | 2019-06-14 11:56 | NUR ---
CALLED [facility] IN [facility] FOR BYSTOLIC 10 MG #30 TAKE ONE DAILY WITH 6 REFILLS. TALKED TO NICOLE, PHARMACIST.
--- NOTE | 2019-06-14 13:16 | NUR ---
PATIENT STILL WAITING FOR FAMILY TO GET HERE. FAMILY CALLED AND STATED THEY JUST LEFT AND THEY ARE [address] AW[address] SO IT WILL TAKE ABOUT 2.5 HOURS TO GET THERE. CALL TRANSFERED TO PATIENT ROOM AT THIS TIME.
--- NOTE | 2019-06-14 15:27 | NUR ---
PATIENT VERY ANXIOUS AND READY TO LEAVE. PATIENT STATES HIS NEPHEW IS WAITING FOR HIM OUTSIDE NOW. 20 GAUGE IV REMOVED FROM RIGHT HAND. NO BLEEDING FROM SITE. CATHETER TIP IN TACT. 2X2 APPLIED AND COVERED WITH BANDAID. PATIENT VERY UPSET STILL. ASSISTED PATIENT TO GET DRESSED. DISCHARGE INSTRUCTIONS PROVIDED TO PATIENT AT 1520. PATIENT VERBALIZED UNDERSTANDING OF ALL INSTRUCTIONS PROVIDED AND STATED HE WOULD CALL IN THE MORNING FOR A FOLLOW UP APPT. PATIENT UPSET THAT THE PERSON WHO CAME TO GET HIM HAS HIS CREDIT CARD. THIS NURSE ASKED PATIENT IF HE HAS ANYTHING TO HELP HIM WITH ANXIETY AT HOME PATIENT IS VERY ANXIOUS AND THE MORE HE TALKS ABOUT THIS PERSON PICKING HIM UP, THE MORE UPSET, AND SHORT OF BREATH HE BECOMES. PATIENT STATES HE HAS AN ANGER PROBLEM AND HAS FOR 42 YEARS AND THAT HE DOESN'T TAKE ANYTHING FOR ANXIETY. PATIENT PROVIDED WITH DISCHARGE PAPERWORK AND ASSISTED INTO WHEELCHAIR. PATIENT LEFT UNIT AT 1527 VIA WHEELCHAIR WITH ALL PERSONAL BELONGINGS. PATIENT THANKED THIS WASH HOUSE WORKER FOR ALL CARES RENDERED WHILE SITTING IN THE WHEELCHAIR WITH THE VOLUNTEER. PATIENT LEFT UNIT HE IS DISCHARGED TO HOME.
== END 2019-06-14 15:20 | disposition home health service (06) | DRG 282 ==
LOC: EDBD 11:56 → D.ER 11:56 → D.M2 12:40
PROVIDERS: Family Medicine; ADMIT Internal Medicine Interventional Cardiology; ATTEND Internal Medicine Interventional Cardiology
PROC: B2141ZZ Fluoroscopy of Right Heart using Low Osmolar Contrast (ICD-10-PCS; 2019-06-14)
PROC: 4A023N7 Measurement of Cardiac Sampling and Pressure, Left Heart, Percutaneous Approach (ICD-10-PCS; 2019-06-14)
PROC: B2111ZZ Fluoroscopy of Multiple Coronary Arteries using Low Osmolar Contrast (ICD-10-PCS; principal; 2019-06-14 11:00)
DX: I21.4 Non-ST elevation (NSTEMI) myocardial infarction (principal); J44.9 Chronic obstructive pulmonary disease, unspecified; I10 Essential (primary) hypertension; E78.5 Hyperlipidemia, unspecified; I25.119 Atherosclerotic heart disease of native coronary artery with unspecified angina pectoris